=== PATIENT | male | born 1985 ===

== ENCOUNTER 2017-03-27 16:50 | Emergency (ER) | payer SELFPAY ==
--- NOTE | 2017-03-27 17:29 | C.PDOC ---
History Of Present Illness Patient is a 31 y/o male who presents to the ED with a complaint of head laceration after a can of Wd40 fell on his head from a shelf. Patient denies any LOC, dizziness, visual changes, or nausea. Patient cleaned the wound and area was bleeding alarming him and prompting ED visit. By arrival, the bleeding had already ceased. Time Seen by Provider: 03/27/17 17:16 Chief Complaint (Nursing): Abnormal Skin Integrity History Per: Patient History/Exam Limitations: no limitations Onset/Duration Of Symptoms: Hrs Location Of Injury: Posterior: Head Quality Of Symptoms: Painful Recent travel outside of the [place]: No Past Medical History Reviewed: Historical Data, Nursing Documentation, Vital Signs Vital Signs: Last Vital Signs Temp 97.2 F L 03/27/17 17:08 Pulse 71 03/27/17 17:53 Resp 17 03/27/17 17:53 BP 116/68 03/27/17 17:53 Pulse Ox 98 03/27/17 18:57 - Medical History PMH: No Chronic Diseases Surgical History: No Surg Hx Family History: States: No Known Family Hx - Social History Hx Alcohol Use: No Hx Substance Use: No - Immunization History Hx Tetanus Toxoid Vaccination: No Hx Influenza Vaccination: No Review Of Systems Constitutional: Negative for: Weakness Eyes: Negative for: Vision Change Cardiovascular: Negative for: Palpitations Gastrointestinal: Negative for: Nausea Skin: Positive for: Other (laceration to posterior aspect of head. ) Neurological: Positive for: Other (no LOC). Negative for: Weakness, Numbness, Confusion, Headache, Dizziness Physical Exam - Physical Exam Appears: Well, Non-toxic, No Acute Distress Skin: Normal Color, Warm, Dry Head: Normacephalic, Laceration (2 cm linear laceration to left posterior parietal scalp; no active bleeding. ) Eye(s): bilateral: Normal Inspection, EOMI Neck: Supple Chest: Symmetrical Extremity: Normal ROM, No Tenderness, No Deformity, No Swelling Neurological/Psych: Oriented x3, Normal Speech, Normal Motor, Normal Sensation, Other (no other focal deficits. ) Gait: Steady ED Course And Treatment O2 Sat by Pulse Oximetry: 98 (room air) Pulse Ox Interpretation: Normal Laceration - Laceration Repair head Wound Length (In cm): 2 cm Description Of Wound: Linear Wound Cleansed With: Sterile Saline Wound Examination: Irrigated With Saline, No FB With Wound Exploration Wound Closure: Reyes (3) Wound Complexity: Simple Medical Decision Making Medical Decision Making: Plan: Tylenol administered. Progress: KAYLA Howell performed laceration repair and closed wound with 3 reyes to patient without difficulty; patient tolerated well. Patient discharged home. Disposition Counseled Patient/Family Regarding: Diagnosis, Need For Followup - Disposition Disposition: HOME/ ROUTINE Disposition Time: 17:29 Condition: STABLE Additional Instructions: Graves laceracin se cerr con 3 grapas Mantenga el naida limpia y seca. Puede lavarse suavemente con agua y jabn. Regrese a ER si se presenta fiebre, enrojecimiento o hinchazn alrededor de la herida, pus en la herida. Por favor, siga con graves mdico de cabecera, clnica, o atencin de urgencia para la eliminacin de grapas en 7 graham Instructions: Staple Care (ED) Forms: [employer] (Occitan) Print Language: CAMBODIAN - POA Present On Arrival: None - Clinical Impression Clinical Impression: Scalp laceration - Scribe Statement The provider has reviewed the documentation as recorded by the Scribe Betty Faria All medical record entries made by the Scribe were at my direction and personally dictated by me. I have reviewed the chart and agree that the record accurately reflects my personal performance of the history, physical exam, medical decision making, and the department course for this patient. I have also personally directed, reviewed, and agree with the discharge instructions and disposition.
[2017-03-27 17:38] VITALS: TEMP 97.2; O2SAT 98
[2017-03-27] MEDS ORDERED: Bacitracin 500 Units/gm Oint Foilpak UD ONE (17:41)
[2017-03-27 17:54] VITALS: BP 116/68; PULSE 71; RESP 17
== END 2017-03-27 17:55 | disposition home or self-care (01) ==
LOC: C.ER 16:50
DX: S01.01XA Laceration without foreign body of scalp, initial encounter (principal); W22.8XXA Striking against or struck by other objects, initial encounter

== ENCOUNTER 2017-04-06 09:06 | Emergency (ER) | payer OTHER ==
[2017-04-06 09:13] VITALS: BMI 25.5
[2017-04-06 09:14] VITALS: BP 105/72; PULSE 65; RESP 20; TEMP 98.3; O2SAT 99
--- NOTE | 2017-04-06 09:23 | C.PDOC ---
History Of Present Illness 31 y/o male presents to ED for scalp staple removal. Patient had 3 cedric placed on 03/27 and notes wound is healing well. No new symptoms or any other complaints at this time. FOR SCALP STAPLE REMOVAL. 3 PLACED 03/27. HEALING WELL, NO NEW SX EXAM NAD SKIN 3 CEDRIC TOP OF SCALP HEALING WELL, NO S/S INFXN PROC 3 CEDRIC REMOVED WO DIFF. PT TOLERATED WELL Time Seen by Provider: 04/06/17 09:19 Chief Complaint (Nursing): Suture/Staple Removal History Per: Patient History/Exam Limitations: no limitations Onset/Duration Of Symptoms: Days Ago Current Symptoms Are (Timing): Still Present Past Medical History Reviewed: Historical Data, Nursing Documentation, Vital Signs Vital Signs: Last Vital Signs Temp 98.3 F 04/06/17 09:14 Pulse 65 04/06/17 09:14 Resp 20 04/06/17 09:14 BP 105/72 04/06/17 09:14 Pulse Ox 99 04/06/17 09:23 - Medical History PMH: No Chronic Diseases Surgical History: No Surg Hx Family History: States: No Known Family Hx - Social History Hx Alcohol Use: No Hx Substance Use: No - Immunization History Hx Tetanus Toxoid Vaccination: No Hx Influenza Vaccination: No Review Of Systems Except As Marked, All Systems Reviewed And Found Negative. Constitutional: Negative for: Fever, Chills Skin: Negative for: Rash Neurological: Negative for: Weakness, Numbness, Headache Physical Exam - Physical Exam Appears: Non-toxic, No Acute Distress Skin: Warm, Dry, No Rash Head: Other (3 cedric top of scalp. Healing well. No signs of infection) Eye(s): bilateral: Normal Inspection Oral Mucosa: Moist Neck: Normal ROM, Supple Chest: Symmetrical Extremity: Normal ROM, Capillary Refill (<2 seconds) Neurological/Psych: Oriented x3, Normal Speech, Normal Cognition, Normal Motor, Normal Sensation ED Course And Treatment O2 Sat by Pulse Oximetry: 99 (RA) Pulse Ox Interpretation: Normal Medical Decision Making Medical Decision Making: Procedure- 3 cedric removed w/o difference. Patient tolerated well, DC Disposition Counseled Patient/Family Regarding: Diagnosis - Disposition Disposition: HOME/ ROUTINE Disposition Time: 09:21 Condition: IMPROVED Instructions: Chronic Wound Care (ED) Forms: [employer] (Faroese) - Clinical Impression Clinical Impression: Removal of cedric - Scribe Statement The provider has reviewed the documentation as recorded by the Scribe Brenda Salas All medical record entries made by the Wendyibpaul were at my direction and personally dictated by me. I have reviewed the chart and agree that the record accurately reflects my personal performance of the history, physical exam, medical decision making, and the department course for this patient. I have also personally directed, reviewed, and agree with the discharge instructions and disposition.
== END 2017-04-06 09:33 | disposition home or self-care (01) ==
LOC: SUPCPDRO 09:06 → C.ER 09:06
DX: Z48.02 Encounter for removal of sutures (principal)

== ENCOUNTER 2017-05-26 13:29 | Emergency (ER) | payer OTHER ==
[2017-05-26 13:29] VITALS: BMI 25.5
[2017-05-26 13:36] VITALS: TEMP 98.1
--- NOTE | 2017-05-26 14:31 | C.PDOC ---
History Of Present Illness 31 y/o male presents to ED with complaints of throat pain, nasal congestion and productive cough for 1 week. Patient states he has noted streak of blood in phlegm occasionally, most recently last night, which prompted visit to ED today. Patient reports subjective fever with associated chills and denies nausea, vomiting, chest pain, ear pain or any other complaints at this time. pt denies weight loss, denies night sweats, denies any recent incarceration Time Seen by Provider: 05/26/17 13:45 Chief Complaint (Nursing): Cough, Cold, Congestion History Per: Patient History/Exam Limitations: no limitations Onset/Duration Of Symptoms: Days Current Symptoms Are (Timing): Still Present Associated Symptoms: Fever, Cough, Nasal Congestion Past Medical History Reviewed: Historical Data, Nursing Documentation, Vital Signs Vital Signs: Last Vital Signs Temp 98.1 F 05/26/17 13:31 Pulse 72 05/26/17 15:33 Resp 18 05/26/17 15:33 BP Pulse Ox 100 05/26/17 22:30 - Medical History PMH: No Chronic Diseases Surgical History: No Surg Hx Family History: States: No Known Family Hx - Social History Hx Alcohol Use: Yes Hx Substance Use: No - Immunization History Hx Tetanus Toxoid Vaccination: No Hx Influenza Vaccination: No Hx Pneumococcal Vaccination: No Review Of Systems Constitutional: Positive for: Fever, Chills ENT: Positive for: Nose Congestion, Throat Pain Respiratory: Positive for: Cough Gastrointestinal: Negative for: Nausea, Vomiting Skin: Negative for: Rash Physical Exam - Physical Exam Additional Physical Exam Comments: Constitutional: No acute distress. WDWN. Head: Normocephalic. Atraumatic. Eyes: PERRL. EOMI. ENT: Moist mucous membranes. Ears occluded by wax bilaterally. (+)Throat Mild Erythema Neck: Supple. (-) Swollen lymph nodes Cardiovascular: Regular rate and rhythm. no murmur Chest: No tenderness. Respiratory: Clear to auscultation bilaterally. no wheezing. rales or rhonchi GI: Soft. Nontender. Nondistended. Normoactive bowel sounds. No rebound. No guarding. Back: No CVA and no mid-line tenderness. Musculoskeletal: No tenderness or swelling of extremities. Skin: No rash. Neurologic: Alert, no focal deficit. ED Course And Treatment O2 Sat by Pulse Oximetry: 100 (RA) Pulse Ox Interpretation: Normal - Radiology CXR: Viewed By Me, Read By Radiologist CXR Interpretation: Yes: No Acute Disease Medical Decision Making Medical Decision Making: cxr neg; tx for bronchitis, f/u pmd. Disposition Counseled Patient/Family Regarding: Studies Performed, Diagnosis, Need For Followup, Rx Given, Smoking Cessation - Disposition Referrals: [facility] [Outside] [facility] [Outside] Disposition: HOME/ ROUTINE Disposition Time: 15:11 Condition: STABLE Additional Instructions: [place] ibuprofeno para el dolor segn lo recetado. Gemini grgaras con agua salada tibia varias veces al da para pian de garganta. Seguimiento en la clnica m dica la semana que viene, llame para jerel skip. Nargis de fumar narguile. Take ibuprofen for pain as prescribed. Gargle with warm salty water several times a day for throat pian. Follow up in medical clinic next week- call for an appointment. Stop smoking hookah. 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 - Scribe Statement The provider has reviewed the documentation as recorded by the Scribpual Salas All medical record entries made by the Wendyibpaul were at my direction and personally dictated by me. I have reviewed the chart and agree that the record accurately reflects my personal performance of the history, physical exam, medical decision making, and the department course for this patient. I have also personally directed, reviewed, and agree with the discharge instructions and disposition.
--- NOTE | 2017-05-26 14:52 | RAD ---
HISTORY: cough with occasional streak of blood COMPARISON: None available. TECHNIQUE: Chest PA and lateral FINDINGS: LUNGS: No focal consolidation. Please note that chest x-ray has limited sensitivity for the detection of pulmonary masses. PLEURA: No significant pleural effusion identified. No definite pneumothorax . CARDIOVASCULAR: Heart size appears within normal limits. OSSEOUS STRUCTURES: No acute osseous abnormality identified. VISUALIZED UPPER ABDOMEN: Unremarkable. OTHER FINDINGS: None. IMPRESSION: No focal consolidation, significant pleural effusion, or definite pneumothorax identified.
[2017-05-26 15:34] VITALS: PULSE 72; RESP 18
[2017-05-26 22:30] VITALS: O2SAT 100
== END 2017-05-26 15:36 | disposition home or self-care (01) ==
LOC: C.ER 13:29
DX: J06.9 Acute upper respiratory infection, unspecified (principal)

== ENCOUNTER 2017-07-10 05:09 | Emergency (ER) | payer OTHER ==
[2017-07-10 05:09] VITALS: BMI 25.5
[2017-07-10 05:41] VITALS: BP 112/73; PULSE 69; RESP 18; TEMP 98.2; O2SAT 98
--- NOTE | 2017-07-10 06:10 | C.PDOC ---
History Of Present Illness pt presents with sore throat, dry cough for the last few days. has used dayquil without much improvement. States that he has had some small amount of sputum with some blood streaks. Speaking in complete sentences. Tolerating po Time Seen by Provider: 07/10/17 06:10 Chief Complaint (Nursing): Cough, Cold, Congestion History Per: Patient History/Exam Limitations: None Onset/Duration Of Symptoms: Days (3) Current Symptoms Are (Timing): Still Present Quality (Mouth/Throat): Tenderness, Redness. denies: Swelling, Drainage Symptoms Have Been: Continuous Severity: Mild Pain Scale Rating Of: 3 Anticoagulant/Antiplatlet Use?: No Recent Aspirin Use: No Past Medical History Reviewed: Historical Data, Nursing Documentation, Vital Signs Vital Signs: Last Vital Signs Temp 98.2 F 07/10/17 05:40 Pulse 69 07/10/17 05:40 Resp 18 07/10/17 05:40 BP 112/73 07/10/17 05:40 Pulse Ox 98 07/10/17 06:39 Family History: States: No Known Family Hx - Social History Hx Alcohol Use: Yes Hx Substance Use: No - Immunization History Hx Tetanus Toxoid Vaccination: No Hx Influenza Vaccination: No Hx Pneumococcal Vaccination: No Review Of Systems Constitutional: Positive for: Fever, Chills, Malaise Eyes: Negative for: Redness ENT: Positive for: Throat Pain. Negative for: Ear Pain, Throat Swelling Cardiovascular: Negative for: Chest Pain Respiratory: Positive for: Cough. Negative for: Shortness of Breath Gastrointestinal: Negative for: Nausea Genitourinary: Negative for: Dysuria Musculoskeletal: Negative for: Back Pain Skin: Negative for: Rash Neurological: Negative for: Weakness Psych: Negative for: Anxiety Physical Exam - Physical Exam Appears: Non-toxic, No Acute Distress Skin: Warm, Dry Head: Normacephalic Eye(s): bilateral: Normal Inspection Nose: No Discharge Oral Mucosa: Moist Tongue: Normal Appearing Lips: Normal Appearing Teeth: Normal Dentition Throat: Erythema, No Exudate, No Drooling Neck: Supple Chest: Symmetrical Cardiovascular: Rhythm Regular Respiratory: No Rales, No Rhonchi, No Wheezing Gastrointestinal/Abdominal: Soft, No Tenderness, No Distention Extremity: Normal ROM Extremity: Bilateral: Atraumatic Neurological/Psych: Oriented x3, Normal Speech, Normal Cognition Gait: Steady ED Course And Treatment O2 Sat by Pulse Oximetry: 98 Pulse Ox Interpretation: Normal - Radiology CXR: Interpreted by Me, Viewed By Me CXR Interpretation: No: Infiltrates, Fracture, Pnemothorax Disposition Counseled Patient/Family Regarding: Studies Performed, Diagnosis - Disposition Disposition Time: 06:10 Condition: UNKNOWN Forms: [employer] (Gibraltarian) - Clinical Impression Clinical Impression: Upper respiratory infection Physician Patient Turnover Patient Signed Over To: Octaviano Vazquez Handoff Comments: pending labs and dispo
[2017-07-10 06:30] LABS: BASO % 0.2 % (0.0-2.0); EOS # 0.1 K/uL (0.0-0.7); EOS % 2.3 % (0.0-4.0); HEMOGLOBIN 14.3 g/dL (12.0-18.0); LYMPH # 1.9 K/uL (1.0-4.3); LYMPH % 30.6 % (20.0-40.0); MEAN CELL VOLUME 88.5 fL (80.0-94.0); MEAN CORPUSCULAR HEMOGLOBIN 30.5 pg (27.0-31.0); MEAN CORPUSCULAR HGB CONC 34.5 g/dL (33.0-37.0); MEAN PLATELET VOLUME 7.3 fL (7.2-11.7); MONO # 0.4 K/uL (0.0-0.8); MONO % 7.1 % (0.0-10.0); NEUT # 3.7 K/uL (1.8-7.0); NEUT % 59.8 % (50.0-75.0); NRBC % 0.1 % (0.0-2.0); RBC 4.7 Mil/uL (4.40-5.90); RED CELL DISTRIBUTION WIDTH 13.1 % (11.5-14.5); WHITE BLOOD COUNT 6.2 K/uL (4.8-10.8)
[2017-07-10 06:45] LABS: BLOOD UREA NITROGEN 14 mg/dL (9-20); CALCIUM 8.4 mg/dl (8.6-10.4); GFR AFRICAN-AMERICAN > 60; GFR NON-AFRICAN AMERICAN > 60
--- NOTE | 2017-07-10 15:26 | RAD ---
HISTORY: SOB COMPARISON: Comparison is made with 05/26/2017 TECHNIQUE: Chest PA and lateral FINDINGS: LUNGS: No active pulmonary disease. PLEURA: No significant pleural effusion identified. No pneumothorax apparent. CARDIOVASCULAR: Normal. OSSEOUS STRUCTURES: No significant abnormalities. VISUALIZED UPPER ABDOMEN: Normal. OTHER FINDINGS: None. IMPRESSION: No active disease.
== END 2017-07-10 07:22 | disposition home or self-care (01) ==
LOC: C.ER 05:09
DX: J06.9 Acute upper respiratory infection, unspecified (principal)

== ENCOUNTER 2017-11-09 09:34 | Emergency (ER) | payer OTHER ==
[2017-11-09 09:34] VITALS: BMI 25.5
[2017-11-09 09:57] VITALS: RESP 16; TEMP 98.2
[2017-11-09] MEDS ORDERED: Sodium Chloride 0.9% 1,000 ML IV ONE (10:38)
[2017-11-09] MEDS ORDERED: Simethicone 80 mg Chewtab PO STA (10:45)
[2017-11-09 11:07] LABS: BASO % 0.1 % (0.0-2.0); EOS # 0.2 K/uL (0.0-0.7); EOS % 2.5 % (0.0-4.0); HEMOGLOBIN 14.9 g/dL (12.0-18.0); LYMPH % 14.8 % (20.0-40.0); MEAN CELL VOLUME 88.9 fL (80.0-94.0); MEAN CORPUSCULAR HEMOGLOBIN 30.8 pg (27.0-31.0); MEAN CORPUSCULAR HGB CONC 34.6 g/dL (33.0-37.0); MEAN PLATELET VOLUME 8.1 fL (7.2-11.7); MONO # 0.4 K/uL (0.0-0.8); MONO % 5.9 % (0.0-10.0); NEUT # 5.3 K/uL (1.8-7.0); NEUT % 76.7 % (50.0-75.0); RBC 4.86 Mil/uL (4.40-5.90); RED CELL DISTRIBUTION WIDTH 12.6 % (11.5-14.5); WHITE BLOOD COUNT 6.9 K/uL (4.8-10.8)
[2017-11-09 11:09] LABS: URINE BILIRUBIN NEGATIVE (NEGATIVE); URINE BLOOD NEGATIVE (NEGATIVE); URINE CLARITY Clear (Clear); URINE COLOR Yellow (YELLOW); URINE GLUCOSE (UA) NORMAL (Normal); URINE LEUKOCYTE ESTERASE NEG Leu/uL (Negative); URINE PROTEIN 1+ mg/dL (NEGATIVE); URINE UROBILINOGEN NORMAL mg/dL (0.2-1.0)
[2017-11-09] MEDS ORDERED: Sodium Chloride 0.9% 1,000 ML ONE (11:10)
[2017-11-09 11:16] LABS: ALB/GLOB RATIO 1.4 (1.0-2.1); ALBUMIN 4.4 g/dL (3.5-5.0); ALT/SGPT 20 U/L (21-72); AST/SGOT 26 U/L (17-59); BLOOD UREA NITROGEN 13 mg/dL (9-20); CALCIUM 8.5 mg/dl (8.6-10.4); GFR AFRICAN-AMERICAN > 60; GFR NON-AFRICAN AMERICAN > 60; LIPASE 46 U/L (23-300)
--- NOTE | 2017-11-09 12:39 | C.PDOC ---
History Of Present Illness 32-year-old male, presents to the emergency department with complaints of sharp abdominal pain, which he describes as gas, that started yesterday. Patient had associated nausea with several episodes of non-bloody/watery diarrhea, prompting visit. Patient denies fever, vomiting, dysuria, Hx of GI bleeding or any other associated symptoms. No other complaints at this time. Time Seen by Provider: 11/09/17 09:59 Chief Complaint (Nursing): Abdominal Pain History Per: Patient History/Exam Limitations: no limitations Past Medical History Reviewed: Historical Data, Nursing Documentation, Vital Signs Vital Signs: Last Vital Signs Temp 98.2 F 11/09/17 09:53 Pulse 70 11/09/17 13:03 Resp 16 11/09/17 13:03 BP 123/74 11/09/17 13:03 Pulse Ox 98 11/09/17 13:03 Family History: States: No Known Family Hx - Social History Hx Alcohol Use: No Hx Substance Use: No - Immunization History Hx Tetanus Toxoid Vaccination: No Hx Influenza Vaccination: Yes Hx Pneumococcal Vaccination: No Review Of Systems Constitutional: Negative for: Fever Cardiovascular: Negative for: Chest Pain Respiratory: Negative for: Shortness of Breath Gastrointestinal: Positive for: Nausea, Abdominal Pain, Diarrhea. Negative for : Vomiting, Hematochezia Neurological: Negative for: Weakness, Headache, Dizziness Physical Exam - Physical Exam Appears: Non-toxic, No Acute Distress Skin: Normal Color, Warm, Dry, No Rash Head: Normacephalic Eye(s): bilateral: PERRL Nose: Normal Oral Mucosa: Moist Lips: Normal Appearing Neck: Normal ROM Cardiovascular: Rhythm Regular, No Murmur Respiratory: Normal Breath Sounds, No Accessory Muscle Use Gastrointestinal/Abdominal: Soft, No Tenderness Extremity: Normal ROM, No Deformity, No Swelling Neurological/Psych: Oriented x3, Normal Speech ED Course And Treatment - Laboratory Results Result Diagrams: 11/09/17 10:59 11/09/17 10:59 O2 Sat by Pulse Oximetry: 99 (RA) Pulse Ox Interpretation: Normal Progress Note: Bloodwork and UA ordered and reviewed. Patient treated with IVF and Simethicone. Disposition Counseled Patient/Family Regarding: Diagnosis, Need For Followup, Rx Given - Disposition Referrals: Ross Tabor MD [Staff Provider] - Disposition: HOME/ ROUTINE Disposition Time: 12:40 Condition: STABLE Additional Instructions: FOLLOW UP WITH GAATROENTEROLOGIST WITHIN 1 WEEK USE MEDICATION NEEDED RETURN TO EMERGENCY ROOM IF SYMPTOMS WORSEN FOLLOW UP WITH GAATROENTEROLOGIST WITHIN 1 WEEK USE MEDICATION NEEDED RETURN TO EMERGENCY ROOM IF SYMPTOMS WORSEN Prescriptions: Simethicone [Mylicon Chew Tab] 80 mg PO Q6 #15 ctb Forms: General Discharge Instructions, [employer] (Arabic), Work Excuse Print Language: CZECH - POA Present On Arrival: None - Clinical Impression Clinical Impression: Gas pain, Abdominal pain - Scribe Statement The provider has reviewed the documentation as recorded by the Scribe (Zacarias Franco) All medical record entries made by the Scribe were at my direction and personally dictated by me. I have reviewed the chart and agree that the record accurately reflects my personal performance of the history, physical exam, medical decision making, and the department course for this patient. I have also personally directed, reviewed, and agree with the discharge instructions and disposition.
[2017-11-09 13:04] VITALS: BP 123/74; PULSE 70
[2017-11-09 17:08] VITALS: O2SAT 99
== END 2017-11-09 13:03 | disposition home or self-care (01) ==
LOC: C.ER 09:34
DX: R14.1 Gas pain (principal); R10.9 Unspecified abdominal pain
CPT/HCPCS: 80053; 81001; 83690; 85025; 96360; 99284; J7040

== ENCOUNTER 2018-01-02 14:57 | Emergency (ER) | payer OTHER ==
[2018-01-02 14:57] VITALS: BMI 25.5
[2018-01-02 15:03] VITALS: BP 142/89; PULSE 82; RESP 18; TEMP 98.9; O2SAT 98
[2018-01-02] MEDS ORDERED: Tmp-Smz 800 mg-160 mg DS Tab PO STA (16:08)
--- NOTE | 2018-01-02 16:11 | C.PDOC ---
History Of Present Illness 32 year old male presents to the emergency department with complaints of swelling in his right lower leg with pustulent drainage for the last few days. Patient reports that the area is still erythematous and painful, but he denies fever. Time Seen by Provider: 01/02/18 15:05 Chief Complaint (Nursing): Abnormal Skin Integrity History Per: Patient History/Exam Limitations: no limitations Onset/Duration Of Symptoms: Days Current Symptoms Are (Timing): Still Present Location Of Injury: Right: Leg Quality Of Symptoms: Painful, Swollen, Draining Past Medical History Reviewed: Historical Data, Nursing Documentation, Vital Signs Vital Signs: Last Vital Signs Temp 98.9 F 01/02/18 15:00 Pulse 82 01/02/18 15:00 Resp 18 01/02/18 15:00 BP 142/89 01/02/18 15:00 Pulse Ox 98 01/02/18 17:10 - Medical History PMH: No Chronic Diseases Surgical History: No Surg Hx Family History: States: No Known Family Hx - Social History Hx Alcohol Use: No Hx Substance Use: No - Immunization History Hx Tetanus Toxoid Vaccination: No Hx Influenza Vaccination: No Hx Pneumococcal Vaccination: No Review Of Systems Skin: Positive for: Other (swelling, draiange, erythema to the right lower leg) Physical Exam - Physical Exam Appears: Non-toxic, No Acute Distress Skin: Warm, Other (3cm erythematous area on lower righ tleg with scab in center , no fluctuance, no drainage. ) Head: Atraumatic, Normacephalic Eye(s): bilateral: Normal Inspection Nose: Normal Neck: Normal, Supple Chest: Symmetrical Extremity: Normal ROM Neurological/Psych: Oriented x3, Normal Speech, Normal Cognition ED Course And Treatment O2 Sat by Pulse Oximetry: 98 (RA) Pulse Ox Interpretation: Normal Progress Note: Plan: Bactrim 1 tab PO. Keflex 500mg PO. Motrin 600mg PO. Area around cirumference marked with a skin marker. Medical Decision Making Medical Decision Making: ot with 3 cm area erythema right lower leg, no drainage now. had pus earlier in week, not fluctuant. Disposition Counseled Patient/Family Regarding: Diagnosis, Need For Followup, Rx Given - Disposition Referrals: [facility] [Outside] Disposition: HOME/ ROUTINE Disposition Time: 16:11 Condition: GOOD Additional Instructions: Por favor tome ambos antibiticos segn lo prescrito. Aplique compresas tibias varias veces al da en la pierna. Tylenol o Motrin para el dolor. Si el enrojecimiento o el calor aumentan ms all de la lnea dibujada alrededor del naidachamp [place], regrese a ER para jerel evaluacin adicional. Gemini un seguimiento en la clnica mdica en unos graham. Please take both antibiotics as prescribed. Apply warm compresses several times a day to leg. Tylenol or Motrin for pain. If redness or warmth increase beyond line drawn around red area today, return to ER for further evaluation. Follow up in medical clinic in a few days. Prescriptions: Cephalexin [cephalexin] 500 mg PO Q6 #28 cap Ibuprofen [Motrin] 600 mg PO TID #30 tab Sulfamethoxazole/Trimethoprim [Bactrim DS 800 mg-160 mg] 1 tab PO BID #20 tab Instructions: Cellulitis (Skin Infection), Adult (DC) Forms: [employer] (Equatorial Guinean), General Discharge Instructions Print Language: BAHRAINI - Clinical Impression Clinical Impression: Cellulitis of lower leg - PA / O AND M SUPERVISOR / Resident Statement MD/DO has reviewed & agrees with the documentation as recorded. - Scribe Statement The provider has reviewed the documentation as recorded by the Scribe (Tenzin Barboza) All medical record entries made by the Scribe were at my direction and personally dictated by me. I have reviewed the chart and agree that the record accurately reflects my personal performance of the history, physical exam, medical decision making, and the department course for this patient. I have also personally directed, reviewed, and agree with the discharge instructions and disposition.
[2018-01-02] MEDS ORDERED: Tmp-Smz 800 mg-160 mg DS Tab ONE (16:38)
== END 2018-01-02 16:52 | disposition home or self-care (01) ==
LOC: C.ER 14:57
DX: L03.115 Cellulitis of right lower limb (principal)